=== PATIENT | male | born 1985 | race Caucasian/White ===

== ENCOUNTER 2017-12-28 18:58 | Emergency (ER) | payer SELFPAY ==
[2017-12-28] MEDS ORDERED: Morphine 4 MG/ML Carpuject ONE (19:20)
[2017-12-28] MEDS ORDERED: Ketorolac Tromethamine 30 MG/ML VIAL ONE (19:21)
[2017-12-28] MEDS ORDERED: diphenhydrAMINE 50 MG/ML VIAL ONE (19:21)
[2017-12-28 19:34] LABS: Bilirubin Small (Negative); Blood, Urine Large (Negative); Clarity Cloudy (Clear); Glucose, Urine (Dipstick) Negative (Negative); Leukocyte Negative (Negative); Nitrite Negative (Negative); Protein, Urine (Dipstick) 100 mg/dL (Neg-Trace)
[2017-12-28 19:42] LABS: Specific Gravity, Urine 1.025 (1.002-1.036)
[2017-12-28 19:43] LABS: Bacteria/HPF 1+ HPF (None Seen); Crystals/HPF None Seen HPF (Negative); Hyaline Casts/LPF NONE SEEN LPF (0-3 Hyaline); Other Casts/LPF None Seen LPF (0-3 Hyaline); Oval Fat Bodies/HPF None Seen HPF (None Seen); RBC/HPF GREATER THAN 50-TNTC HPF (0-3); Renal Epithelial None Seen HPF (0-3); Sperm/HPF None Seen HPF (None Seen); Squamous Epithelial None Seen HPF (0-3); Transitional Epithelial NONE SEEN HPF (0-3); Trichomonas/HPF None Seen HPF (None Seen); WBC/HPF 0-3 HPF (0-3); Yeast-All Forms None Seen HPF (None Seen)
[2017-12-28 21:13] LABS: Prothrombin Time 12.8 SEC (12.0-14.7)
[2017-12-28 21:21] LABS: Sodium 140 mmol/L (136-145)
[2017-12-28 21:22] LABS: BUN (Urea Nitrogen) 13 mg/dL (8.9-20.6); Calc. Creatinine Clearance 0 mL/min (70-130); Calcium 9.4 mg/dL (7.8-10.44); Carbon Dioxide 23 mmol/L (22-29); Chloride 106 mmol/L (98-107); Estimated GFR-MDRD Greater than 90; Glucose 103 mg/dL (70-105)
[2017-12-28 21:23] LABS: Anion Gap 15 mmol/L (10-20)
[2017-12-28 21:29] LABS: Band 4 % (5-11); Lymphocytes 13 % (21-51); MDiff Complete? YES; Mean Corpuscular HGB CONC 34.3 g/dL (32.0-36.0); Mean Corpuscular Hemoglobin 34.4 pg (27.0-31.0); Mean Platelet Volume 7.6 fL (7.4-10.4); Monocytes 4 % (0-10); Neutrophil 78 % (42-75); PLT Morphology Comment Appears Adequate; Platelet Count 322 thou/uL (130-400); RBC Distribution Width 12.1 % (11.5-14.5); RBC Morphology Normal; Red Blood Cell (RBC) Count 4.94 mill/uL (4.70-6.10); White Blood Cell (WBC) Count 15.6 thou/uL (4.8-10.8)
--- NOTE | 2017-12-28 21:57 | CT ---
CT ABDOMEN AND PELVIS WITHOUT CONTRAST 12/28/[address] of the abdomen and pelvis was performed for evaluation of left lower quadrant pain and ivonne turia. Axial slices were acquired, then coronal and sagittal reconstructions were done. There is a 3 mm left ureteral calculus at the L4-L5 level that is causing mild left hydronephrosis. T here is some periureteral edema at the site of obstruction. No other renal calculi were seen. The lung bases are clear. The liver, spleen, pancreas, adrenal glands, gallbladder, and abdominal aor ta appear normal within the limitations of a noncontrast scan. The bowel is nondistended. There are no inflammatory changes around bowel. There are several divertic mee associated with the colon, somewhat unusual in this young group. No free air or free fluid was se en. CT of the pelvis shows no pelvic masses, fluid collections, or inflammatory changes. Some bony spurri ng is seen posteriorly at L5-S1. IMPRESSION: 3 mm left ureteral calculus at L4-L5 level causing mild left hydronephrosis. Report in agreement with preliminary reading by Melissa. POS: HOME
== END 2017-12-28 21:05 | disposition short-term general hospital (02) ==
LOC: BURERS 18:58
DX: N13.2 Hydronephrosis with renal and ureteral calculous obstruction (principal); N26.1 Atrophy of kidney (terminal)
CPT/HCPCS: 36415; 74176; 80048; 81003; 81015; 85025; 85610; 85730; 94760; 96374; 96375; J1200; J1885; J2270

== ENCOUNTER 2021-10-17 16:33 | Emergency (ER) | payer SELFPAY ==
[2021-10-17] MEDS ORDERED: Ondansetron PF 4 MG/2 ML Vial ONE (16:50)
[2021-10-17] MEDS ORDERED: Ketorolac Tromethamine 30 MG/ML VIAL ONE (16:52)
[2021-10-18 09:00] LABS: SARS-CoV-2 PCR by NAA Not Detected (NotDetected)
== END 2021-10-17 17:45 | disposition home or self-care (01) ==
LOC: BURERS 16:33
DX: B34.9 Viral infection, unspecified (principal); M54.50 Low back pain, unspecified; Z20.822 Contact with and (suspected) exposure to COVID-19; F17.210 Nicotine dependence, cigarettes, uncomplicated
CPT/HCPCS: 87804; 96374; 96375; J1885; J2405; U0003; U0005

== ENCOUNTER 2022-04-08 12:49 | Emergency (ER) | payer SELFPAY ==
[2022-04-08] MEDS ORDERED: methylPREDNISolone Sod Succ/PF 125 MG/2 ML VIAL ONE (13:19)
[2022-04-08] MEDS ORDERED: Bicillin LA 1.2 MILLION UNITS/2 ML SYRINGE ONE (13:19)
== END 2022-04-08 13:40 | disposition home or self-care (01) ==
LOC: BURERS 12:49
DX: J02.9 Acute pharyngitis, unspecified (principal); F17.210 Nicotine dependence, cigarettes, uncomplicated; Z87.442 Personal history of urinary calculi
CPT/HCPCS: 87081; 87430; 96372; 99283; J0561; J2930

== ENCOUNTER 2022-08-07 14:02 | Emergency (ER) | payer SELFPAY ==
[2022-08-07] MEDS ORDERED: Ondansetron PF 4 MG/2 ML Vial ONE (14:26)
[2022-08-07] MEDS ORDERED: Ketorolac Tromethamine 30 MG/ML VIAL ONE (14:26)
[2022-08-07] MEDS ORDERED: Ketorolac Tromethamine 30 MG/ML VIAL IVP SCH (14:30)
[2022-08-07] MEDS ORDERED: Ondansetron PF 4 MG/2 ML Vial IVP SCH (14:30)
[2022-08-07] MEDS ORDERED: Sodium Chloride 0.9% 1,000 ML IV SCH (14:30)
[2022-08-07 14:45] LABS: Hemoglobin 15.7 g/dL (14.0-18.0); Mean Platelet Volume 6.7 fL (7.4-10.4); Platelet Count 355 thou/uL (130-400); Red Blood Cell (RBC) Count 4.76 mill/uL (4.70-6.10); White Blood Cell (WBC) Count 16.4 thou/uL (4.8-10.8)
[2022-08-07 14:46] LABS: ALT (SGPT) 12 U/L (8-55); AST (SGOT) 13 U/L (5-34); Albumin 4.4 g/dL (3.5-5.0); Alkaline Phosphatase 76 U/L (40-110); Anion Gap 15 mmol/L (10-20); BUN (Urea Nitrogen) 16 mg/dL (8.9-20.6); Bilirubin, Total 0.6 mg/dL (0.2-1.2); Calc. Creatinine Clearance 0 mL/min (70-130); Calcium 9.3 mg/dL (7.8-10.44); Carbon Dioxide 24 mmol/L (22-29); Chloride 104 mmol/L (98-107); Estimated GFR 97; Glucose 105 mg/dL (70-105); Potassium 3.7 mmol/L (3.5-5.1); Protein, Total 7.4 g/dL (6.0-8.3); Sodium 139 mmol/L (136-145)
[2022-08-07 15:12] LABS: MDiff Complete? YES
[2022-08-07 15:13] LABS: Band 11 % (5-11); Lymphocytes 8 % (21-51); Monocytes 4 % (0-10); Neutrophil 77 % (42-75); Platelet Morphology Comment Appears Adequate; RBC Morphology Normal
[2022-08-07] MEDS ORDERED: Promethazine 25 MG TAB ONE (15:20)
[2022-08-07] MEDS ORDERED: Orphenadrine Citrate 60 MG/2 ML VIAL ONE (15:20)
== END 2022-08-07 16:14 | disposition home or self-care (01) ==
LOC: BURERS 14:02
DX: D72.829 Elevated white blood cell count, unspecified (principal); R11.2 Nausea with vomiting, unspecified; F17.210 Nicotine dependence, cigarettes, uncomplicated
CPT/HCPCS: 80053; 85025; 96361; 96374; 96375; J1885; J2360; J2405; Q0169

== ENCOUNTER 2024-07-08 20:34 | Emergency (ER) | payer BC ==
[2024-07-08] MEDS ORDERED: Acetaminophen 500 MG TAB ONE (21:13)
[2024-07-08] MEDS ORDERED: Promethazine HCl 25 MG/ML VIAL ONE (21:14)
== END 2024-07-08 21:35 | disposition home or self-care (01) ==
LOC: BURERS 20:34
DX: B34.9 Viral infection, unspecified (principal); F17.210 Nicotine dependence, cigarettes, uncomplicated
CPT/HCPCS: 87804; 96372; 99284; J2550